=== PATIENT | male | born 1940 | race Caucasian/White ===

== ENCOUNTER 2017-05-09 09:59 | Emergency (ER) | payer OTHER, BC ==
[~2017-05-09] VITALS: Ht 167.6 cm; Wt 81.0 kg
[~2017-05-09 09:59] MED LIST: ADULT LOW DOSE81 M1 PO; ALLEGRA ALLERG180 MG PO; ALTACE10 MG PO; ALTACE5 MG PO; ASPIR 8181 M1 PO; ASPIRIN325 MG PO; ATIVAN0.5 MG PO; AZITHROMYCIN500 M1 PO; BRINTELLIX5 MG PO; CLARITIN,ALAVAR10 MG PO; COLACE100 MG PO; COUMADIN1 MG PO; COUMADIN10 MG PO; COUMADIN5 MG PO; CRESTOR10 MG PO; CYANOCOBALAM1000 MCG PO; DILAUDID2 MG PO; DITROPAN XL15 MG PO; DULCOLAX5 MG PO; Diabeta,Micronase PO; ENDOCET 5-3251 EACH PO; Ecotrin PO; FISH OIL 1,2001 EAC4 PO; FISH OIL 1,4001 EACH PO; FISH OIL PO; FISH OIL500 MG PO; FLOMAX0.4 MG PO; FLONASE16 G1 BOTH NARES; GLUCOPHAGE1000 MG PO; GLUCOPHAGE500 MG PO; Glucophage PO; HUMALOG MI100 UNIT/5 SC; HUMALOG MI100 UNIT/6 SC; HYDROCHLOROTHIA25 MG PO; HYDROMORPHONE HC2 MG PO; INDERAL20 MG PO; JANUMET 50/11 TABLET PO; LESCOL XL80 MG PO; LINZESS145 MCG PO; LIPOFEN50 MG PO; LO-DOSE ASPIRIN81 M1 PO; LOPRESSOR25 MG PO; LORAZEPAM0.5 MG PO; LORCET 5-325 M1 EACH PO; LOVAZA1 GM PO; Lovaza PO; MEDROL DOSEPAK4 MG PO; MEN'S MULTI-VI1 EACH PO; MEN'S ONE DAIL1 EACH PO; METFORMIN HCL1000 MG PO; METFORMIN HCL500 M1 PO; METFORMIN HCL500 MG PO; MUCINEX D ER T1 EACH PO; MUCINEX600 MG PO; MULTIPLE VITAM1 EACH PO; MULTIVITAMIN1 EAC2 PO; NORCO 5/3251 TABLET PO; NOVOLOG MI100 UNIT/4 SC; NOVOLOG MI100 UNIT/M PO; NOVOLOG MI100 UNIT/M SC; OMEPRAZOLE20 MG PO; ONDANSETRON ODT4 MG PO; ONE DAILY FOR1 EACH PO; OXYBUTYNIN CHLO15 MG PO; PLAVIX75 MG PO; PRILOSEC20 MG PO; PROLENSA1.6 ML BOTH EYES; PROPRANOLOL HCL20 MG PO; PROTONIX40 MG PO; PriLOSEC PO; RAMIPRIL10 MG PO; SINGULAIR10 MG PO; ST. JOSEPH ASPI81 MG PO; STOOL SOFTENER100 M1 PO; STOOL SOFTENER100 MG PO; SYSTANE ULTRA 015 ML BOTH EYES; SYSTANE ULTRA 015 ML RIGHT EYE; Singulair PO; TAMSULOSIN HCL0.4 MG PO; TRAZODONE HCL50 MG PO; TYLENOL EXTRA500 MG PO; VENTOLIN HFA18 GM IH; VESICARE10 MG PO; VITAMIN B-6100 MG PO; VITAMIN B12-FO1 EACH PO; WARFARIN SODIUM5 MG PO; ZEGERID40 MG PO; ZOCOR10 MG PO; stool softener PO
[2017-05-09 10:44] LABS: MCH 28.5 PG (29.0-34.0); MCHC 34.1 G/DL (30.0-36.0); MCV 83.3 FL (86-99); MEAN PLAT.VOLUME 10.4 uM^3 (9.0-12.4); PLATELET COUNT 199 K/uL (156-360); RBC DIS.WIDTH-CV 15.4 % (11.8-14.6); RBC DIS.WIDTH-SD 46.5 % (39-53); RED BLOOD COUNT 4.92 M/uL (4.00-5.50); WHITE BLOOD COUNT 13.6 K/uL (4.1-10.2)
[2017-05-09 10:54] LABS: INTER. NORMALIZED RATIO 2.7; PROTHROMBIN TIME 28.7 (9.2-11.2); PTT 38.1 (25-32)
[2017-05-09 10:55] LABS: CHLORIDE 102 mEq/L (99-109); POTASSIUM 3.4 mEq/L (3.7-5.4); SODIUM 138 mEq/L (136-147)
[2017-05-09 10:58] LABS: GLUCOSE 61 mg/dL (70-99)
[2017-05-09 10:59] LABS: ANION GAP 12 MEQ/L (2-14); TOTAL BILIRUBIN 0.4 mg/dL (0.0-1.0)
[2017-05-09 11:01] LABS: ALKALINE PHOSPHATASE 75 IU/L (3-129); GFR ESTIMATE (CALCULATED) 57 mL/min/
[2017-05-09 11:02] LABS: UREA NITROGEN (BUN) 29 mg/dL (9-23)
[2017-05-09 11:05] LABS: LIPASE 33 U/L (1.0-51.0)
[2017-05-09] MEDS ORDERED: FLAGYL500 MG PO (11:51)
[2017-05-09] MEDS ORDERED: CIPRO500 MG PO (11:51)
[2017-05-09 12:39] VITALS: BP 128/70
== END 2017-05-09 12:53 | disposition home or self-care (01) ==
LOC: EME 09:59
PROVIDERS: Physician Assistant
DX: K52.9 Noninfective gastroenteritis and colitis, unspecified (principal); K62.5 Hemorrhage of anus and rectum; K21.9 Gastro-esophageal reflux disease without esophagitis; I10 Essential (primary) hypertension; E11.9 Type 2 diabetes mellitus without complications; Z86.73 Personal history of transient ischemic attack (TIA), and cerebral infarction without residual deficits; Z79.84 Long term (current) use of oral hypoglycemic drugs; Z79.01 Long term (current) use of anticoagulants; Z79.82 Long term (current) use of aspirin; Z87.891 Personal history of nicotine dependence; Z79.4 Long term (current) use of insulin
CPT/HCPCS: 74177; 80053; 81003; 83690; 85027; 85610; 85730; 99281; 99284; J7030